=== PATIENT | male | born 1995 | race Caucasian/White ===

== ENCOUNTER 2017-11-02 04:07 | Emergency (ER) | payer SELFPAY ==
[~2017-11-02] VITALS: Ht 172.7 cm; Wt 83.5 kg
--- NOTE | 2017-11-02 04:17 | NUR ---
PT AA/OX 4 ANXIOUS. C/C DIFFICULTY BREATHING SECONDARY FROM ALLERGIC REACTION. KNOWN ALMOND ALLERGY. "I THOUGHT I ATE A PEANUT AND BUTTER SANDWICH". SKIN RED, WARM, DRY. SHAKING. SEVERE LIP SWELLING. NO N/V. ST 101. ALL OTHER VSS. SOHAM. AT BEDSIDE. WILL CONTINUE TO MONITOR.
[2017-11-02] MEDS ORDERED: diphenhydrAMINE HCL 50 MG/ML VIAL ONE (04:19)
[2017-11-02] MEDS ORDERED: methylPREDNISolone SOD SUCC 125 MG/2ML VIAL ONE (04:19)
[2017-11-02] MEDS ORDERED: FAMOTIDINE/PF INJ 20 MG/2 ML VIAL IV ONE ×2 (04:19→04:30)
[2017-11-02] MEDS ORDERED: EPINEPHRINE (1:1000) 1 MG/ML AMPUL ONE (04:19)
[2017-11-02] MEDS ORDERED: diphenhydrAMINE HCL 50 MG/ML VIAL IV ONE (04:30)
[2017-11-02] MEDS ORDERED: IV NS 0.9% 1,000 ML BAG IV ONE (04:30)
[2017-11-02] MEDS ORDERED: EPINEPHRINE (1:1000) MDV 30 MG/30ML VIAL SUBCUT ONE (04:30)
[2017-11-02] MEDS ORDERED: methylPREDNISolone SOD SUCC 125 MG/2ML VIAL IV ONE (04:30)
--- NOTE | 2017-11-02 05:56 | NUR ---
Patient is resting comfortably in bed with eyes closed. Easily aroused. VSS. STABLE CONDITION. SAFETY MEASURES IN PLACE. CALL LIGHT WITHIN REACH. FAMILY ATE BEDSIDE
--- NOTE | 2017-11-02 07:22 | NUR ---
ENDORSED TO ONCOMING RN BULMARO. PT STABLE CONDITION. VSS. NAD.
--- NOTE | 2017-11-02 07:27 | NUR ---
PATIENT ON BED, ASLEEP AT THIS TIME. LIPS STILL NOTED SWELLING, NO SOB. VSS
[2017-11-02 09:25] VITALS: BP 132/88
[2017-11-02] MEDS ORDERED: diphenhydrAMINE HCL 25 MG CAPSULE ONE (09:27)
[2017-11-02] MEDS ORDERED: diphenhydrAMINE HCL 25 MG CAPSULE PO ONE (09:30)
== END 2017-11-02 09:35 | disposition home or self-care (01) ==
LOC: ER 04:09
DX: T78.1XXA Other adverse food reactions, not elsewhere classified, initial encounter (principal); Z60.2 Problems related to living alone; X58.XXXA Exposure to other specified factors, initial encounter
CPT/HCPCS: 93005; 96372; 96374; 96375; 99284; A4606; J0171 ×2; J1200; J2930; J3490; J7030; Q0163; Z7610